=== PATIENT | female | born 1940 | race Caucasian/White ===

== ENCOUNTER 2019-02-22 22:38 | Inpatient (IN) | payer MEDICARE, BC ==
--- NOTE | 2019-02-22 22:43 | EDM.PDOC ---
ED HPI GENERAL MEDICAL PROBLEM - General Chief Complaint: Respiratory Problem Stated Complaint: COUGHING AND WEAK Time Seen by Provider: 02/22/19 22:42 Source of Information: Reports: Patient - History of Present Illness INITIAL COMMENTS - FREE TEXT/NARRATIVE: HISTORY AND PHYSICAL: History of present illness: [Patient presents by private vehicle with cough and weakness] Review of systems: As per history of present illness and below otherwise all systems reviewed and negative. Past medical history: As per history of present illness and as reviewed below otherwise noncontributory. Surgical history: As per history of present illness and as reviewed below otherwise noncontributory. Social history: No reported history of drug or alcohol abuse. Family history: As per history of present illness and as reviewed below otherwise noncontributory. Physical exam: HEENT: Atraumatic, normocephalic, pupils reactive, negative for conjunctival pallor or scleral icterus, mucous membranes moist, throat clear, neck supple, nontender, trachea midline. Lungs: Clear to auscultation, breath sounds equal bilaterally, chest nontender. Heart: S1S2, regular, negative for clicks, rubs, or JVD. Abdomen: Soft, nondistended, nontender. Negative for masses or hepatosplenomegaly. Negative for costovertebral tenderness. Pelvis: Stable nontender. Genitourinary: Deferred. Rectal: Deferred. Extremities: Atraumatic, negative for cords or calf pain. Neurovascular unremarkable. Neuro: Awake, alert, oriented. Cranial nerves II through XII unremarkable. Cerebellum unremarkable. Motor and sensory unremarkable throughout. Exam nonfocal. Diagnostics: [CBC CMP UA troponin EKG Chest 1 view] Influenza Therapeutics: [Normal saline ]7 Azithromycin Impression: Pneumonia Hyponatremia [Generalized weakness Cough ] Definitive disposition and diagnosis as appropriate pending reevaluation and review of above. chest area Pain Score (Numeric/FACES): 4 - Related Data Allergies Allergy/AdvReac Type Severity Reaction Status Date / Time ciprofloxacin HCl Allergy Leg Cramps Verified 02/22/19 22:43 [From Cipro] Penicillins Allergy Hives Verified 02/22/19 22:43 IV contrast dye Allergy Anaphylactic Uncoded 02/22/19 22:43 Shock Tape Allergy Rash Uncoded 02/22/19 22:43 Home Meds: Home Meds Diltiazem IR [Cardizem] 30 mg PO DAILY 08/08/13 [History] Metoprolol Succinate 50 mg PO DAILY 08/08/13 [History] metFORMIN HCl [Metformin HCl] 1,000 mg PO BIDAC 08/08/13 [History] Saxagliptin HCl/Metformin HCl [Kombiglyze Xr 2.5-1,000 mg Tab] 1 each PO BID 02/13 [History] Empagliflozin [Jardiance] 25 mg PO DAILY 02/22/19 [History] Losartan [Cozaar] 25 mg PO DAILY 02/22/19 [History] ED ROS GENERAL - Review of Systems Review Of Systems: See Below ED EXAM, GENERAL - Physical Exam Exam: See Below Course - Vital Signs Last Recorded V/S: Last Vital Signs Temp 98.2 F 02/22/19 22:43 Pulse 73 02/22/19 22:43 Resp 24 H 02/22/19 22:43 BP 134/72 02/22/19 22:43 Pulse Ox 91 L 02/22/19 22:43 - Orders/Labs/Meds Orders: Active Orders 24 hr Category Date Time Status EKG Documentation Completion [RC] STAT Care 02/22/19 22:43 Active RT Aerosol Therapy [RC] ASDIRECTED Care 02/22/19 22:45 Active CULTURE BLOOD [BC] Stat Lab 02/22/19 22:40 Received CULTURE BLOOD [BC] Stat Lab 02/22/19 23:00 Received UA RFX KATYA AND CULT IF INDIC [URIN] Stat Lab 02/22/19 22:43 Ordered Azithromycin [Zithromax] 500 mg Med 02/22/19 23:45 Ordered Sodium Chloride 0.9% [Normal Saline (AdvBag)] 250 ml IV ONETIME Sodium Chloride 0.9% [Normal Saline] 1,000 ml Med 02/22/19 22:45 Active IV STAT cefTRIAXone [Rocephin in Dextrose,Iso-Osm 1 GM/50 ML] 1 Med 02/22/19 23:50 Ordered gm Premix Bag 1 bag IV ONETIME Blood Culture x2 Reflex Set [OM.PC] Stat Oth 02/22/19 22:43 Ordered Medication Orders Sodium Chloride (Normal Saline) 1,000 mls @ 125 mls/hr IV STAT BALDEV Last Admin: 02/22/19 22:58 Dose: 125 mls/hr Azithromycin 500 mg/ Sodium (Chloride) 250 mls @ 250 mls/hr IV ONETIME BALDEV Labs: Laboratory Tests 02/22/19 02/22/19 02/22/19 Range/Units 22:40 22:40 22:40 WBC 9.71 (4.0-11.0) K/uL RBC 4.24 L (4.30-5.90) M/uL Hgb 13.5 (12.0-16.0) g/dL Hct 38.5 (36.0-46.0) % MCV 90.8 (80.0-98.0) fL MCH 31.8 (27.0-32.0) pg MCHC 35.1 (31.0-37.0) g/dL RDW Std Deviation 41.2 (28.0-62.0) fl RDW Coeff of Mariia 12 (11.0-15.0) % Plt Count 240 (150-400) K/uL MPV 9.50 (7.40-12.00) fL Add Manual Diff YES Neutrophils % (Manual) 57 (48.0-80.0) % Band Neutrophils % 10 % Lymphocytes % (Manual) 10 L (16.0-40.0) % Monocytes % (Manual) 23 H (0.0-15.0) % Nucleated RBC % 0.0 /100WBC Absolute Seg Neuts 5.5 (1.4-5.7) Band Neutrophils # 1.0 Lymphocytes # (Manual) 1.0 (0.6-2.4) Monocytes # (Manual) 2.2 H (0.0-0.8) Nucleated RBCs # 0 K/uL Sodium 129 L (136-145) mmol/L Potassium 4.0 (3.5-5.1) mmol/L Chloride 95 L (98-107) mmol/L Carbon Dioxide 22.1 (21.0-32.0) mmol/L BUN 13 (7.0-18.0) mg/dL Creatinine 0.9 (0.6-1.0) mg/dL Est Cr Clr Drug Dosing 46.11 mL/min Estimated GFR (MDRD) > 60.0 ml/min Glucose 168 H (74-106) mg/dL Calcium 9.0 (8.5-10.1) mg/dL Total Bilirubin 0.9 (0.2-1.0) mg/dL AST 48 H (15-37) IU/L ALT 48 (14-63) IU/L Alkaline Phosphatase 60 (46-116) U/L Troponin I <0.050 (0.000-0.056) ng/mL Total Protein 8.0 (6.4-8.2) g/dL Albumin 3.4 (3.4-5.0) g/dL Globulin 4.6 H (2.6-4.0) g/dL Albumin/Globulin Ratio 0.7 L (0.9-1.6) TSH 3rd Generation 1.61 (0.36-3.74) uIU/mL Meds: Medications Generic Name Dose Route Start Last Admin Trade Name Freq PRN Reason Stop Dose Admin Sodium Chloride 1,000 mls @ 125 mls/hr 02/22/19 22:45 02/22/19 22:58 Normal Saline IV 125 mls/hr STAT BALDEV Administration Azithromycin 500 mg/ Sodium 250 mls @ 250 mls/hr 02/22/19 23:45 Chloride IV ONETIME BALDEV Discontinued Medications Generic Name Dose Route Start Last Admin Trade Name Freq PRN Reason Stop Dose Admin Albuterol/Ipratropium 3 ml 02/22/19 22:45 02/22/19 22:58 Duoneb 3.0-0.5 Mg/3 Ml NEB 02/22/19 22:46 3 ml ONETIME ONE Administration Methylprednisolone Sodium Succinate 40 mg 02/22/19 22:52 Solu-Medrol IV 02/22/19 22:53 STAT ONE Methylprednisolone Sodium Succinate 125 mg 02/22/19 22:52 02/22/19 22:58 Solu-Medrol IVPUSH 02/22/19 22:53 125 mg ONETIME ONE Administration Departure - Departure Time of Disposition: 23:51 Disposition: Admitted As Inpatient 66 Condition: Fair Clinical Impression: Pneumonia, Hyponatremia - Discharge Information Referrals: Dirk Torres MD [Primary Care Provider] - Forms: ED Department Discharge - My Orders Last 24 Hours: My Active Orders 02/22/19 22:40 CULTURE BLOOD [BC] Stat 02/22/19 22:43 EKG Documentation Completion [RC] STAT UA RFX KATYA AND CULT IF INDIC [URIN] Stat Blood Culture x2 Reflex Set [OM.PC] Stat 02/22/19 22:45 RT Aerosol Therapy [RC] ASDIRECTED Sodium Chloride 0.9% [Normal Saline] 1,000 ml IV STAT 02/22/19 23:00 CULTURE BLOOD [BC] Stat 02/22/19 23:45 Azithromycin [Zithromax] 500 mg Sodium Chloride 0.9% [Normal Saline (AdvBag)] 250 ml IV ONETIME 02/22/19 23:50 cefTRIAXone [Rocephin in Dextrose,Iso-Osm 1 GM/50 ML] 1 gm Premix Bag 1 bag IV ONETIME - Assessment/Plan Last 24 Hours: My Active Orders 02/22/19 22:40 CULTURE BLOOD [BC] Stat 02/22/19 22:43 EKG Documentation Completion [RC] STAT UA RFX KATYA AND CULT IF INDIC [URIN] Stat Blood Culture x2 Reflex Set [OM.PC] Stat 02/22/19 22:45 RT Aerosol Therapy [RC] ASDIRECTED Sodium Chloride 0.9% [Normal Saline] 1,000 ml IV STAT 02/22/19 23:00 CULTURE BLOOD [BC] Stat 02/22/19 23:45 Azithromycin [Zithromax] 500 mg Sodium Chloride 0.9% [Normal Saline (AdvBag)] 250 ml IV ONETIME 02/22/19 23:50 cefTRIAXone [Rocephin in Dextrose,Iso-Osm 1 GM/50 ML] 1 gm Premix Bag 1 bag IV ONETIME
[2019-02-22] MEDS ORDERED: Albuterol/Ipratropium 3.0-0.5 MG/3 ML Neb Soln NEB ONE (22:45)
[2019-02-22] MEDS ORDERED: methylPREDNISolone Sodium Succinate 40 MG/1 ML SDV IM ONE (22:45)
[2019-02-22] MEDS ORDERED: methylPREDNISolone Sodium Succinate 125 MG/2 ML SDV IVPUSH ONE (22:52)
[2019-02-22] MEDS ORDERED: methylPREDNISolone Sodium Succinate 1,000 MG/8 ML SDV IV ONE (22:52)
[2019-02-22] MEDS: Sodium Chloride 0.9% 1,000 ML IV SCH (22:58)
[2019-02-22 23:22] LABS: BLOOD UREA NITROGEN,BUN 13 mg/dL (7.0-18.0); CARBON DIOXIDE,CO2 22.1 mmol/L (21.0-32.0); CHLORIDE,CL 95 mmol/L (98-107); GLUCOSE RANDOM 168 mg/dL (74-106); SODIUM,NA 129 mmol/L (136-145)
[2019-02-22] MEDS ORDERED: Azithromycin 500 MG in Sodium Chloride 0.9% 250 ML IV SCH (23:45)
--- NOTE | 2019-02-22 23:47 | CR ---
Indication: Weakness, Technique: Chest 1 view Comparison: None Findings/Impression: Normal cardiomediastinal silhouette. Partial atelectasis of the right upper lobe. Superimposed pneumonia cannot be excluded. The left lung is clear. No effusion or pneumothorax. No acute osseous abnormality. Dictated by Anastasiya Tucker MD @ Feb 22 2019 11:43PM Signed by Dr. Anastasiya Tucker @ Feb 22 2019 11:44PM
[2019-02-22] MEDS ORDERED: cefTRIAXone 1 GM in Premix Bag 1 BAG IV ONE (23:50)
[2019-02-23 06:44] LABS: BLOOD UREA NITROGEN,BUN 18 mg/dL (7.0-18.0); CARBON DIOXIDE,CO2 18.3 mmol/L (21.0-32.0); CHLORIDE,CL 101 mmol/L (98-107); GLUCOSE RANDOM 258 mg/dL (74-106); POTASSIUM,K 4.2 mmol/L (3.5-5.1); SODIUM,NA 136 mmol/L (136-145)
[2019-02-23] MEDS: Sodium Chloride 0.9% 1,000 ML IV SCH ×2 (06:54→20:27)
[2019-02-23] MEDS: Insulin Aspart 100 Units/ML 3 ML Pen SUBCUT SCH ×3 (08:17→18:08)
--- NOTE | 2019-02-23 10:52 | PCM.HP.2 ---
H&P History of Present Illness - General Date of Service: 02/23/19 Admit Problem/Dx: Admission Diagnosis/Problem Admission Diagnosis/Problem Pneumonia - History of Present Illness Initial Comments - Free Text/Narative: 78 y/o female with history of DM2 who presented to the ER complaining of worsening cough, weakness. States that she has been having a cough and feeling weak for the past 1 week. No fevers, vomiting. No chest pain. Endorses some shortness of breath. NO abdominal pain, dysuria, diarrhea. Was concerned since not improving. No other sick contacts. Lives at home with family. chest area Pain Score (Numeric/FACES): 4 - Related Data Allergies/Adverse Reactions: Allergies Allergy/AdvReac Type Severity Reaction Status Date / Time ciprofloxacin HCl Allergy Leg Cramps Verified 02/23/19 01:17 [From Cipro] Latex, Natural Rubber Allergy Rash Verified 02/23/19 01:18 Penicillins Allergy Hives Verified 02/23/19 01:17 IV contrast dye Allergy Anaphylactic Uncoded 02/23/19 01:17 Shock Tape Allergy Rash Uncoded 02/23/19 01:17 Home Medications: Home Meds Metoprolol Succinate 100 mg PO DAILY 08/08/13 [History] Saxagliptin HCl/Metformin HCl [Kombiglyze Xr 2.5-1,000 mg Tab] 1 tab PO BID 02/13 [History] Empagliflozin [Jardiance] 25 mg PO DAILY 02/22/19 [History] Losartan [Cozaar] 25 mg PO DAILY 02/22/19 [History] Aspirin [Lo-Dose Aspirin EC] 81 mg PO DAILY 02/23/19 [History] Diltiazem [Dilacor XR] 240 mg PO DAILY 02/23/19 [History] Glimepiride 4 mg PO BIDMEALS 02/23/19 [History] Multivitamin [Multi-Day Vitamins] 1 tab PO DAILY 02/23/19 [History] Past Medical History HEENT History: Reports: None Cardiovascular History: Reports: Hypertension Respiratory History: Reports: Other (See Below) Other Respiratory History: Lung Collapsed Gastrointestinal History: Reports: None Genitourinary History: Reports: UTI, Recurrent C[employer] 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: , Other (See Below) Other OB/BYN History: cyst removal Musculoskeletal History: Reports: Arthritis Neurological History: Reports: None Psychiatric History: Reports: None Endocrine/Metabolic History: Reports: Diabetes, Type II Insulin Pump Model and Career Development Counselor: None Hematologic History: Reports: None Immunologic History: Reports: None Oncologic (Cancer) History: Reports: None Dermatologic History: Reports: None - Infectious Disease History Infectious Disease History: Reports: Chicken Pox, Measles, Mumps - Past Surgical History Head Surgeries/Procedures: Reports: None Female Surgical History: Reports: Section Social & Family History - Family History Family Medical History: Noncontributory - Tobacco Use Smoking Status *Q: Never Smoker - Caffeine Use Caffeine Use: Reports: Soda - Recreational Drug Use Recreational Drug Use: No H&P Review of Systems - Review of Systems: Review Of Systems: ROS reveals no pertinent complaints other than HPI. Exam - Exam Exam: See Below - Vital Signs Vital Signs: Last Vital Signs Temp 36 C 02/23/19 07:55 Pulse 69 02/23/19 07:55 Resp 18 02/23/19 07:55 BP 100/53 L 02/23/19 07:55 Pulse Ox 92 L 02/23/19 07:55 Weight: 56.2 kg - Exam General: Alert, Oriented, Cooperative HEENT: Other (dry oral mucosa) Lungs: Other (good airflow bilaterally with some mild crackles on right lung field. No wheezing.) Cardiovascular: Regular Rate, Regular Rhythm GI/Abdominal Exam: Normal Bowel Sounds, Soft, Non-Tender, No Distention Extremities: Normal Inspection, No Pedal Edema Skin: Warm, Dry Neuro Extensive - Mental Status: Alert, Oriented x3 - Patient Data Lab Results Last 24 hrs: Laboratory Results - last 24 hr 02/22/19 02/22/19 02/22/19 Range/Units 22:40 22:40 22:40 WBC 9.71 (4.0-11.0) K/uL RBC 4.24 L (4.30-5.90) M/uL Hgb 13.5 (12.0-16.0) g/dL Hct 38.5 (36.0-46.0) % MCV 90.8 (80.0-98.0) fL MCH 31.8 (27.0-32.0) pg MCHC 35.1 (31.0-37.0) g/dL RDW Std Deviation 41.2 (28.0-62.0) fl RDW Coeff of Mariia 12 (11.0-15.0) % Plt Count 240 (150-400) K/uL MPV 9.50 (7.40-12.00) fL Neut % (Auto) (48.0-80.0) % Lymph % (Auto) (16.0-40.0) % Floyd % (Auto) (0.0-15.0) % Eos % (Auto) (0.0-7.0) % Baso % (Auto) (0.0-1.5) % Neut # (Auto) (1.4-5.7) K/uL Lymph # (Auto) (0.6-2.4) K/uL Floyd # (Auto) (0.0-0.8) K/uL Eos # (Auto) (0.0-0.7) K/uL Baso # (Auto) (0.0-0.1) K/uL Add Manual Diff YES Neutrophils % (Manual) 57 (48.0-80.0) % Band Neutrophils % 10 % Lymphocytes % (Manual) 10 L (16.0-40.0) % Monocytes % (Manual) 23 H (0.0-15.0) % Nucleated RBC % 0.0 /100WBC Absolute Seg Neuts 5.5 (1.4-5.7) Band Neutrophils # 1.0 Lymphocytes # (Manual) 1.0 (0.6-2.4) Monocytes # (Manual) 2.2 H (0.0-0.8) Nucleated RBCs # 0 K/uL Sodium 129 L (136-145) mmol/L Potassium 4.0 (3.5-5.1) mmol/L Chloride 95 L (98-107) mmol/L Carbon Dioxide 22.1 (21.0-32.0) mmol/L BUN 13 (7.0-18.0) mg/dL Creatinine 0.9 (0.6-1.0) mg/dL Est Cr Clr Drug Dosing 46.11 mL/min Estimated GFR (MDRD) > 60.0 ml/min Glucose 168 H (74-106) mg/dL POC Glucose (60-110) mg/dL Calcium 9.0 (8.5-10.1) mg/dL Total Bilirubin 0.9 (0.2-1.0) mg/dL AST 48 H (15-37) IU/L ALT 48 (14-63) IU/L Alkaline Phosphatase 60 (46-116) U/L Troponin I <0.050 (0.000-0.056) ng/mL Total Protein 8.0 (6.4-8.2) g/dL Albumin 3.4 (3.4-5.0) g/dL Globulin 4.6 H (2.6-4.0) g/dL Albumin/Globulin Ratio 0.7 L (0.9-1.6) TSH 3rd Generation 1.61 (0.36-3.74) uIU/mL Urine Color Urine Appearance Urine pH (5.0-8.0) Ur Specific [place] (1.001-1.035) Urine Protein (NEGATIVE) mg/dL Urine Glucose (UA) (NEGATIVE) mg/dL Urine Ketones (NEGATIVE) mg/dL Urine Occult Blood (NEGATIVE) Urine Nitrite (NEGATIVE) Urine Bilirubin (NEGATIVE) Urine Urobilinogen (<2.0) EU/dL Ur Leukocyte Esterase (NEGATIVE) Urine RBC (0-2/HPF) Urine WBC (0-5/HPF) Ur Epithelial Cells (NONE-FEW) Urine Bacteria (NEGATIVE) Urine Mucus (NONE-MOD) 02/23/19 02/23/19 02/23/19 Range/Units 01:00 01:16 05:57 WBC 8.26 (4.0-11.0) K/uL RBC 4.00 L (4.30-5.90) M/uL Hgb 12.6 (12.0-16.0) g/dL Hct 36.9 (36.0-46.0) % MCV 92.3 (80.0-98.0) fL MCH 31.5 (27.0-32.0) pg MCHC 34.1 (31.0-37.0) g/dL RDW Std Deviation 42.3 (28.0-62.0) fl RDW Coeff of Mariia 12 (11.0-15.0) % Plt Count 239 (150-400) K/uL MPV 9.70 (7.40-12.00) fL Neut % (Auto) 92.1 H (48.0-80.0) % Lymph % (Auto) 6.1 L (16.0-40.0) % Floyd % (Auto) 1.7 (0.0-15.0) % Eos % (Auto) 0.0 (0.0-7.0) % Baso % (Auto) 0.1 (0.0-1.5) % Neut # (Auto) 7.6 H (1.4-5.7) K/uL Lymph # (Auto) 0.5 L (0.6-2.4) K/uL Floyd # (Auto) 0.1 (0.0-0.8) K/uL Eos # (Auto) 0.0 (0.0-0.7) K/uL Baso # (Auto) 0.0 (0.0-0.1) K/uL Add Manual Diff Neutrophils % (Manual) (48.0-80.0) % Band Neutrophils % % Lymphocytes % (Manual) (16.0-40.0) % Monocytes % (Manual) (0.0-15.0) % Nucleated RBC % 0.0 /100WBC Absolute Seg Neuts (1.4-5.7) Band Neutrophils # Lymphocytes # (Manual) (0.6-2.4) Monocytes # (Manual) (0.0-0.8) Nucleated RBCs # 0 K/uL Sodium (136-145) mmol/L Potassium (3.5-5.1) mmol/L Chloride (98-107) mmol/L Carbon Dioxide (21.0-32.0) mmol/L BUN (7.0-18.0) mg/dL Creatinine (0.6-1.0) mg/dL Est Cr Clr Drug Dosing mL/min Estimated GFR (MDRD) ml/min Glucose (74-106) mg/dL POC Glucose 137 H (60-110) mg/dL Calcium (8.5-10.1) mg/dL Total Bilirubin (0.2-1.0) mg/dL AST (15-37) IU/L ALT (14-63) IU/L Alkaline Phosphatase (46-116) U/L Troponin I (0.000-0.056) ng/mL Total Protein (6.4-8.2) g/dL Albumin (3.4-5.0) g/dL Globulin (2.6-4.0) g/dL Albumin/Globulin Ratio (0.9-1.6) TSH 3rd Generation (0.36-3.74) uIU/mL Urine Color YELLOW Urine Appearance CLEAR Urine pH 5.5 (5.0-8.0) Ur Specific [place] 1.010 (1.001-1.035) Urine Protein NEGATIVE (NEGATIVE) mg/dL Urine Glucose (UA) >=1000 (NEGATIVE) mg/dL Urine Ketones 15 H (NEGATIVE) mg/dL Urine Occult Blood SMALL H (NEGATIVE) Urine Nitrite NEGATIVE (NEGATIVE) Urine Bilirubin NEGATIVE (NEGATIVE) Urine Urobilinogen 0.2 (<2.0) EU/dL Ur Leukocyte Esterase NEGATIVE (NEGATIVE) Urine RBC 0-3 (0-2/HPF) Urine WBC 0-4 (0-5/HPF) Ur Epithelial Cells OCCASIONAL (NONE-FEW) Urine Bacteria FEW (NEGATIVE) Urine Mucus LIGHT (NONE-MOD) 02/23/19 02/23/19 Range/Units 05:57 06:09 WBC (4.0-11.0) K/uL RBC (4.30-5.90) M/uL Hgb (12.0-16.0) g/dL Hct (36.0-46.0) % MCV (80.0-98.0) fL MCH (27.0-32.0) pg MCHC (31.0-37.0) g/dL RDW Std Deviation (28.0-62.0) fl RDW Coeff of Mariia (11.0-15.0) % Plt Count (150-400) K/uL MPV (7.40-12.00) fL Neut % (Auto) (48.0-80.0) % Lymph % (Auto) (16.0-40.0) % Floyd % (Auto) (0.0-15.0) % Eos % (Auto) (0.0-7.0) % Baso % (Auto) (0.0-1.5) % Neut # (Auto) (1.4-5.7) K/uL Lymph # (Auto) (0.6-2.4) K/uL Floyd # (Auto) (0.0-0.8) K/uL Eos # (Auto) (0.0-0.7) K/uL Baso # (Auto) (0.0-0.1) K/uL Add Manual Diff Neutrophils % (Manual) (48.0-80.0) % Band Neutrophils % % Lymphocytes % (Manual) (16.0-40.0) % Monocytes % (Manual) (0.0-15.0) % Nucleated RBC % /100WBC Absolute Seg Neuts (1.4-5.7) Band Neutrophils # Lymphocytes # (Manual) (0.6-2.4) Monocytes # (Manual) (0.0-0.8) Nucleated RBCs # K/uL Sodium 136 (136-145) mmol/L Potassium 4.2 (3.5-5.1) mmol/L Chloride 101 (98-107) mmol/L Carbon Dioxide 18.3 L (21.0-32.0) mmol/L BUN 18 (7.0-18.0) mg/dL Creatinine 0.8 (0.6-1.0) mg/dL Est Cr Clr Drug Dosing 51.42 mL/min Estimated GFR (MDRD) > 60.0 ml/min Glucose 258 H (74-106) mg/dL POC Glucose 229 H (60-110) mg/dL Calcium 8.4 L (8.5-10.1) mg/dL Total Bilirubin (0.2-1.0) mg/dL AST (15-37) IU/L ALT (14-63) IU/L Alkaline Phosphatase (46-116) U/L Troponin I (0.000-0.056) ng/mL Total Protein (6.4-8.2) g/dL Albumin (3.4-5.0) g/dL Globulin (2.6-4.0) g/dL Albumin/Globulin Ratio (0.9-1.6) TSH 3rd Generation (0.36-3.74) uIU/mL Urine Color Urine Appearance Urine pH (5.0-8.0) Ur Specific [place] (1.001-1.035) Urine Protein (NEGATIVE) mg/dL Urine Glucose (UA) (NEGATIVE) mg/dL Urine Ketones (NEGATIVE) mg/dL Urine Occult Blood (NEGATIVE) Urine Nitrite (NEGATIVE) Urine Bilirubin (NEGATIVE) Urine Urobilinogen (<2.0) EU/dL Ur Leukocyte Esterase (NEGATIVE) Urine RBC (0-2/HPF) Urine WBC (0-5/HPF) Ur Epithelial Cells (NONE-FEW) Urine Bacteria (NEGATIVE) Urine Mucus (NONE-MOD) Result Diagrams: 02/23/19 05:57 02/23/19 05:57 Lucas Results Last 24 hrs: Microbiology 02/22/19 22:41 Influenza Type A Antigen Screen - Final Nasopharyngeal Swab NEGATIVE INFLUENZA A VIRUS AG REFERENCE RANGE: NEGATIVE Influenza Type B Antigen Screen - Final NEGATIVE INFLUENZA B VIRUS AG REFERENCE RANGE: NEGATIVE Problem List Initiated/Reviewed/Updated: Yes Orders Last 24hrs: Active Orders 24 hr Category Date Time Status Admission Status [Patient Status] [ADT] Stat ADT 02/22/19 23:54 Active EKG Documentation Completion [RC] STAT Care 02/22/19 22:43 Active Glucose [Blood Glucose Check, Bedside] [RC] TIDAC Care 02/23/19 01:58 Active RT Aerosol Therapy [RC] ASDIRECTED Care 02/22/19 22:45 Active Supplemental O2 [Oxygen Therapy] [RC] ASDIRECTED Care 02/23/19 07:46 Active ADA Diabetic [[place] [employer] Diet] [DIET Diet 02/23/19 Breakfast Active ] CULTURE BLOOD [BC] Stat Lab 02/22/19 22:40 Received CULTURE BLOOD [BC] Stat Lab 02/22/19 23:00 Received Azithromycin [Zithromax] 500 mg Med 02/22/19 23:45 Active Sodium Chloride 0.9% [Normal Saline (AdvBag)] 250 ml IV ONETIME Azithromycin [Zithromax] 500 mg Med 02/24/19 02:00 Active Sodium Chloride 0.9% [Normal Saline (AdvBag)] 250 ml IV Q24H Insulin Aspart [NovoLOG] Med 02/23/19 07:30 Active See Protocol SUBCUT TIDAC Sodium Chloride 0.9% [Normal Saline] 1,000 ml Med 02/22/19 22:45 Active IV STAT cefTRIAXone [Rocephin in Dextrose,Iso-Osm 1 GM/50 ML] 1 Med 02/23/19 23:00 Active gm Premix Bag 1 bag IV Q24H Blood Culture x2 Reflex Set [OM.PC] Stat Oth 02/22/19 22:43 Ordered Medication Orders Sodium Chloride (Normal Saline) 1,000 mls @ 75 mls/hr IV STAT BALDEV Last Admin: 02/23/19 06:54 Dose: 125 mls/hr Infusion: 02/23/19 06:54 Dose: 125 mls/hr Admin: 02/22/19 22:58 Dose: 125 mls/hr Azithromycin 500 mg/ Sodium (Chloride) 250 mls @ 250 mls/hr IV ONETIME BALDEV Last Admin: 02/23/19 02:15 Dose: 250 mls/hr Azithromycin 500 mg/ Sodium (Chloride) 250 mls @ 250 mls/hr IV Q24H BALDEV Ceftriaxone Sodium/Dextrose 1 (gm/ Premix) 50 mls @ 100 mls/hr IV Q24H BALDEV Insulin Aspart (Novolog) 0 unit SUBCUT TIDAC BALDEV; Protocol Last Admin: 02/23/19 08:17 Dose: 2 units Assessment/Plan Comment:: A: 1. Community acquired pneumonia 2. PMH DM2, hypertension P: 1. Will treat for CAP with ceftriaxone and azithromycin. Will titrate O2 as tolerated. Accuchecks and ISS for now. Will hold on antihypertensive meds for now since BP is normal. Will likely start cefpodoxime 200 mg PO BID once ready for discharge. Dispo: 1-2 days.
[2019-02-23] MEDS ORDERED: Insulin Aspart 100 Units/ML 3 ML Pen SUBCUT SCH (11:30)
[2019-02-23] MEDS ORDERED: cefTRIAXone 1 GM in Premix Bag 1 BAG IV SCH (23:00)
[2019-02-24] MEDS ORDERED: Azithromycin 500 MG in Sodium Chloride 0.9% 250 ML IV SCH (02:00)
[2019-02-24] MEDS: Insulin Aspart 100 Units/ML 3 ML Pen SUBCUT SCH ×2 (08:25→12:05)
[2019-02-24] MEDS ORDERED: Aspirin 81 MG Tab.EC PO SCH (09:00)
[2019-02-24] MEDS ORDERED: Benzonatate 100 MG Cap PO PRN (10:49)
--- NOTE | 2019-02-24 12:06 | PCM.DCSUM1 ---
Discharge Summary - Hospital Course Free Text/Narrative:: 78 y/o female with history of DM2 who was admitted for community acquired pneumonia. Chest xray showed a right lung consolidation. She was started on IV ceftriaxone and azithromycin and did relatively well. She was able to be weaned off from supplemental O2 NC 2L down to room air with oxygen sats in the mid 90' s. She remained afebrile and was feeling much better during this hospitalization. She was discharged home on Cefpodoxime 200 mg PO BID for 5 days , Tessalon perles and lozenges for her sore throat. She was advised to follow- up with her PCP in 1-2 weeks. - Discharge Data Discharge Date: 02/24/19 Discharge Disposition: Home, Self-Care 01 Condition: Good - Referral to Home Health Primary Care Physician: Dirk Torres MD - Patient Instructions Diet: Diabetic Diet Activity: As Tolerated, No Strenuous Activities, Rest and Relax Today Notify Provider of: Fever, Increased Pain, Swelling and Redness, Nausea and/or Vomiting - Discharge Plan *PRESCRIPTION DRUG MONITORING PROGRAM REVIEWED*: Not Applicable *COPY OF PRESCRIPTION DRUG MONITORING REPORT IN PATIENT CARSON: Not Applicable Prescriptions/Med Rec: Benzocaine/Menthol [Cepacol Sore Throat Lozenge] 1 each PO Q4H PRN #30 lozenge PRN Reason: Sore Throat Benzonatate 100 mg PO TID PRN #30 capsule PRN Reason: Cough Cefpodoxime [Vantin] 200 mg PO BID 5 Days #10 tab Home Medications: Home Meds Metoprolol Succinate 100 mg PO DAILY 08/08/13 [History] Saxagliptin HCl/Metformin HCl [Kombiglyze XR 2.5-1,000 MG] 1 tab PO BID [History] Empagliflozin [Jardiance] 25 mg PO DAILY 02/22/19 [History] Losartan [Cozaar] 25 mg PO DAILY 02/22/19 [History] Aspirin [Lo-Dose Aspirin EC] 81 mg PO DAILY 02/23/19 [History] Diltiazem [Dilacor XR] 240 mg PO DAILY 02/23/19 [History] Glimepiride 4 mg PO BIDMEALS 02/23/19 [History] Multivitamin [Multi-Day Vitamins] 1 tab PO DAILY 02/23/19 [History] Benzocaine/Menthol [Cepacol Sore Throat Lozenge] 1 each PO Q4H PRN #30 lozenge 02/24/19 [Rx] Benzonatate 100 mg PO TID PRN #30 capsule 02/24/19 [Rx] Cefpodoxime [Vantin] 200 mg PO BID 5 Days #10 tab 02/24/19 [Rx] Forms: ED Department Discharge Referrals: Dirk Torres MD [Primary Care Provider] - 03/08/19 10:00 am - Discharge Summary/Plan Comment DC Time >30 min.: No - Patient Data Vitals - Most Recent: Last Vital Signs Temp 36.2 C 02/24/19 07:10 Pulse 54 L 02/24/19 07:10 Resp 16 02/24/19 07:10 BP 133/60 02/24/19 07:10 Pulse Ox 94 L 02/24/19 07:10 Weight - Most Recent: 56.2 kg I&O - Last 24 hours: Intake & Output 02/23/19 02/24/19 02/24/19 22:59 06:59 14:59 Intake Total 1400 1602 Output Total 800 1400 Balance 600 202 Lab Results - Last 24 hrs: Laboratory Results - last 24 hr 02/23/19 02/24/19 02/24/19 Range/Units 17:14 06:01 11:41 POC Glucose 246 H 190 H 272 H (60-110) mg/dL KATYA Results - Last 24 hrs: Microbiology 02/22/19 23:00 Aerobic Blood Culture - Preliminary Blood - Venous - Lab Draw NO GROWTH AFTER 1 DAY Anaerobic Blood Culture - Preliminary NO GROWTH AFTER 1 DAY 02/22/19 22:40 Aerobic Blood Culture - Preliminary Blood - Venous NO GROWTH AFTER 1 DAY Anaerobic Blood Culture - Preliminary NO GROWTH AFTER 1 DAY Med Orders - Current: Current Medications Aspirin (Halfprin) 81 mg PO DAILY [facility] Last Admin: 02/24/19 08:32 Dose: 81 mg Benzonatate (Tessalon Perles) 100 mg PO TID PRN PRN Reason: Cough Sodium Chloride (Normal Saline) 1,000 mls @ 75 mls/hr IV STAT [facility] Last Admin: 02/23/19 20:27 Dose: 125 mls/hr Azithromycin 500 mg/ Sodium (Chloride) 250 mls @ 250 mls/hr IV Q24H [facility] Last Admin: 02/24/19 01:56 Dose: 250 mls/hr Ceftriaxone Sodium/Dextrose 1 (gm/ Premix) 50 mls @ 100 mls/hr IV Q24H [facility] Last Admin: 02/23/19 22:57 Dose: 100 mls/hr Insulin Aspart ([facility]) [facility]; Protocol Last Admin: 02/24/19 08:25 Dose: 1 units Discontinued Medications Albuterol/Ipratropium (Duoneb 3.0-0.5 Mg/3 Ml) 3 ml NEB ONETIME ONE Stop: 02/22/19 22:46 Last Admin: 02/22/19 22:58 Dose: 3 ml Azithromycin 500 mg/ Sodium (Chloride) 250 mls @ 250 mls/hr IV ONETIME [facility] Last Admin: 02/23/19 02:15 Dose: 250 mls/hr Ceftriaxone Sodium/Dextrose 1 (gm/ Premix) 50 mls @ 100 mls/hr IV ONETIME ONE Stop: 02/23/19 00:19 Last Admin: 02/22/19 23:58 Dose: 100 mls/hr Insulin Aspart (Novolog) [facility]; Protocol Methylprednisolone Sodium Succinate (Solu-Medrol) 40 mg IV STAT ONE Stop: 02/22/19 22:53 Methylprednisolone Sodium Succinate (Solu-Medrol) 125 mg IVPUSH ONETIME ONE Stop: 02/22/19 22:53 Last Admin: 02/22/19 22:58 Dose: 125 mg
== END 2019-02-24 13:40 | disposition home or self-care (01) | DRG 195 ==
LOC: MW.ED 22:38 → MW.MS 23:54
PROVIDERS: ADMIT Internal Medicine; ATTEND Internal Medicine
DX: J18.9 Pneumonia, unspecified organism (principal); E87.1 Hypo-osmolality and hyponatremia; E53.1 Pyridoxine deficiency; R05 Cough; I10 Essential (primary) hypertension; E11.9 Type 2 diabetes mellitus without complications; M19.90 Unspecified osteoarthritis, unspecified site; Z79.82 Long term (current) use of aspirin; Z88.1 Allergy status to other antibiotic agents; Z88.0 Allergy status to penicillin; Z91.041 Radiographic dye allergy status; Z91.048 Other nonmedicinal substance allergy status; Z99.81 Dependence on supplemental oxygen; Z91.040 Latex allergy status; Z87.440 Personal history of urinary (tract) infections; Z79.84 Long term (current) use of oral hypoglycemic drugs; Z79.899 Other long term (current) drug therapy
CPT/HCPCS: 36415; 71045; 80053; 84443; 84484; 85025; 87040 ×2; 87804 ×2; 94640; J2930; J7040; 80048; 81001; 82962; 96361; 96365; 96375; 99283; 99284-25; A9270-GY; J0456; J0696; J1815-GY; J7050; J7620-GY